=== PATIENT | male | born 1960 | race Caucasian/White ===

== ENCOUNTER 2017-12-29 05:46 | Emergency (ER) | payer SELFPAY ==
[~2017-12-29] VITALS: Ht 170.1 cm; Wt 70.8 kg
[~2017-12-29 05:46] MED LIST: AMOXICILLIN500 MG PO; CLINDAMYCIN HC300 MG PO; DAYPRO600 M1 PO; ROBAXIN750 MG PO; VICODIN ES 7501 TAB PO
[2017-12-29] MEDS ORDERED: Kenalog 0.5% Cr15 GM T (06:03)
[2017-12-29] MEDS ORDERED: ATARAX,VISTARIL50 MG PO (06:03)
== END 2017-12-29 06:12 | disposition home or self-care (01) ==
LOC: ED 05:46
DX: L25.9 Unspecified contact dermatitis, unspecified cause (principal); Z91.041 Radiographic dye allergy status

== ENCOUNTER 2022-10-11 14:47 | Emergency (ER) | payer OTHER ==
[~2022-10-11] VITALS: Wt 65.8 kg
[~2022-10-11 14:47] MED LIST changes: +ATARAX,VISTARIL50 MG PO; +Kenalog 0.5% Cr15 GM T
[2022-10-11 15:47] LABS: BASO % 0.7 % (0.0-1.0); EOS # 0.1 10*3/uL (0.0-0.4); EOS % 2.1 % (1.0-4.0); HEMATOCRIT 37.2 % (42.0-52.0); LYMPH # 1.3 10*3/uL (1.3-4.4); LYMPH % 23.9 % (27.0-41.0); MEAN CELL VOLUME 91.4 fl (80.0-94.0); MEAN CORPUSCULAR HGB 30.7 pg (27.0-31.0); MEAN CORPUSCULAR HGB CONC 33.6 g/dl (33.0-37.0); MONO # 0.7 10*3/uL (0.1-1.0); MONO % 12.1 % (3.0-9.0); NEUT # 3.4 10*3/uL (2.3-7.9); PLATELET COUNT AUTOMATED 228 10*3/uL (130-400); RED BLOOD COUNT 4.07 10*6/uL (4.50-5.90); RED CELL DISTRI WIDTH 11.5 % (0-14.5); WHITE BLOOD COUNT 5.6 10*3/uL (4.8-10.8)
[2022-10-11 16:05] LABS: ACT PARTIAL THROMBO TIME 28.8 SECONDS (20.0-32.1)
[2022-10-11 16:07] LABS: ALKALINE PHOSPHATASE 63 U/L (46-116); BUN 17 mg/dl (9-23); CHLORIDE 103 mmol/L (98-107); LIPASE 31 U/L (12-53); POTASSIUM 4.3 mmol/L (3.4-5.1); SGPT/ALT 14 U/L (10-49); TOTAL PROTEIN 6.5 gm/dL (6.0-8.0)
== END 2022-10-11 17:27 | disposition home or self-care (01) ==
LOC: ED 14:47
PROVIDERS: Emergency Medicine
DX: M66.0 Rupture of popliteal cyst (principal); Z91.041 Radiographic dye allergy status; Z91.013 Allergy to seafood

== ENCOUNTER → 2022-10-31 | Outpatient (CLI) | payer OTHER | END | disposition home or self-care (01) | LOC: MRI 01:05 | PROVIDERS: ATTEND Orthopaedic Surgery | DX: S83.282A Other tear of lateral meniscus, current injury, left knee, initial encounter (principal); S86.912A Strain of unspecified muscle(s) and tendon(s) at lower leg level, left leg, initial encounter; M23.92 Unspecified internal derangement of left knee; R60.9 Edema, unspecified; M17.12 Unilateral primary osteoarthritis, left knee; X58.XXXA Exposure to other specified factors, initial encounter; Y93.89 Activity, other specified; Y92.89 Other specified places as the place of occurrence of the external cause; Y99.8 Other external cause status ==